=== PATIENT | female | born 1940 | race Two or more races ===

== ENCOUNTER 2020-04-23 09:16 | Outpatient (REF) | payer MEDICARE, SELFPAY ==
[2020-04-23 11:17] LABS: Alanine Aminotransferase 16 U/L (0-31); Albumin Level 4.1 g/dL (3.5-5.0); Alkaline Phosphatase 76 U/L (39-117); Anion Gap 13 (12-20); Aspartate Amino Transferase 16 U/L (5-31); Bilirubin Total 0.3 mg/dL (0.0-1.0); Blood Urea Nitrogen 26 mg/dL (9-16); Calcium 9.3 mg/dL (8.4-10.2); Carbon Dioxide 26 mmol/L (22-29); Chloride 106 mmol/L (96-108); Cholesterol 187 mg/dL; Estimated Glomerular Filt Rate 51; Glucose Fasting 105 mg/dL (60-99); HDL Cholesterol 42 mg/dL; LDL Cholesterol Calculated 129 mg/dl; Potassium 5.4 mmol/l (3.3-5.1); Sodium 140 mmol/L (135-145); Triglycerides 80 mg/dL
[2020-04-23 11:21] LABS: TSH reflex Free T4 0.73 mIU/mL (0.32-4.0)
== END 2020-04-23 09:17 | disposition home or self-care (01) ==
LOC: HO.LAB 09:16
PROVIDERS: PCP Internal Medicine; Visit Provider Internal Medicine
DX: E78.00 Pure hypercholesterolemia, unspecified (principal); E06.3 Autoimmune thyroiditis
CPT/HCPCS: 36415; 80053; 80061; 84443

== ENCOUNTER 2020-09-20 08:35 | Outpatient (REF) | payer MEDICARE, SELFPAY ==
[2020-09-20 09:56] LABS: Alanine Aminotransferase 16 U/L (0-31); Albumin Level 4.2 g/dL (3.5-5.0); Alkaline Phosphatase 79 U/L (39-117); Anion Gap 13 (12-20); Aspartate Amino Transferase 15 U/L (5-31); Bilirubin Total 0.4 mg/dL (0.0-1.0); Blood Urea Nitrogen 23 mg/dL (9-16); Calcium 9.7 mg/dL (8.4-10.2); Carbon Dioxide 28 mmol/L (22-29); Chloride 102 mmol/L (96-108); Cholesterol 205 mg/dL; Estimated Glomerular Filt Rate 57; Glucose Fasting 106 mg/dL (60-99); HDL Cholesterol 49 mg/dL; LDL Cholesterol Calculated 136 mg/dl; Potassium 5.1 mmol/L (3.3-5.1); Sodium 138 mmol/L (135-145); Total Protein 7.1 g/dL (6.5-8.0); Triglycerides 103 mg/dL
[2020-09-20 10:16] LABS: TSH reflex Free T4 2.26 uIU/mL (0.32-4.0)
== END 2020-09-20 08:36 | disposition home or self-care (01) ==
LOC: HO.LAB 08:35
PROVIDERS: PCP Internal Medicine; Visit Provider Internal Medicine
DX: E06.3 Autoimmune thyroiditis (principal); I10 Essential (primary) hypertension
CPT/HCPCS: 36415; 80053; 80061; 84443

== ENCOUNTER 2020-12-24 06:38 | Outpatient (REF) | payer MEDICARE, SELFPAY ==
[2020-12-24 07:30] LABS: Basophils Absolute Auto 0.1 X10*3/uL (0.0-0.2); Basophils Percent Auto 1.1 % (0-2); Eosinophils Absolute Auto 0.7 X10*3/uL (0.0-0.4); Eosinophils Percent Auto 6.2 % (0-4); Hematocrit 39.1 % (37-47); Hemoglobin 12.2 g/dl (12.0-16.0); Imm Gran Abs Auto 0.03 X10*3/uL (0.00-0.03); Imm Gran Pct Auto 0.3 % (0.0-0.4); Lymphocytes Absolute Auto 5.7 X10*3/uL (1.2-4.9); Lymphocytes Percent Auto 47.5 % (20-40); MANUAL DIFF FLAG SCAN; Mean Corpuscular HGB Conc 31.2 g/dl (31.0-35.0); Mean Corpuscular Hemoglobin 25.5 pg (27.0-33.0); Mean Corpuscular Volume 81.6 fL (80-98); Mean Platelet Volume 11.6 fL (9.4-12.3); Monocytes Percent Auto 8.3 % (2-11); Neutrophils Absolute Auto 4.4 X10*3/uL (2.0-8.3); Neutrophils Percent Auto 36.6 % (45-73); Platelet Count 297 X10*3/uL (160-400); Red Blood Count 4.79 X10*6/uL (4.20-5.50); Red Cell Distribution Width 15.3 % (11.0-16.0); SCAN SMEAR FLAG 1
[2020-12-24 07:46] LABS: Alanine Aminotransferase 15 U/L (0-31); Alkaline Phosphatase 77 U/L (39-117); Anion Gap 12 (12-20); Aspartate Amino Transferase 15 U/L (5-31); Bilirubin Total 0.3 mg/dL (0.0-1.0); Blood Urea Nitrogen 30 mg/dL (9-16); Calcium 9.6 mg/dL (8.4-10.2); Carbon Dioxide 26 mmol/L (22-29); Chloride 106 mmol/L (96-108); Cholesterol 186 mg/dL; Estimated Glomerular Filt Rate 49; Glucose Fasting 112 mg/dL (60-99); HDL Cholesterol 45 mg/dL; LDL Cholesterol Calculated 124 mg/dl; Potassium 5.3 mmol/L (3.3-5.1); Sodium 139 mmol/L (135-145); Total Protein 6.8 g/dL (6.5-8.0); Triglycerides 88 mg/dL
[2020-12-24 07:54] LABS: SLIDE REVIEW VERIFIED
[2020-12-24 08:00] LABS: TSH reflex Free T4 1.15 uIU/mL (0.32-4.0)
[2020-12-29 20:06] LABS: Vitamin D 25-OH, D2 <4 ng/mL; Vitamin D 25-OH, D3 26 ng/mL; Vitamin D 25-OH, Total 26 ng/mL (30-100)
== END 2020-12-24 06:39 | disposition home or self-care (01) ==
LOC: HO.LAB 06:38
PROVIDERS: PCP Internal Medicine; Visit Provider Internal Medicine
DX: E78.5 Hyperlipidemia, unspecified (principal); E06.3 Autoimmune thyroiditis; E55.9 Vitamin D deficiency, unspecified; D64.9 Anemia, unspecified; K21.9 Gastro-esophageal reflux disease without esophagitis
CPT/HCPCS: 36415; 80053; 80061; 82306; 84443; 85025

== ENCOUNTER 2021-04-26 08:17 | Outpatient (REF) | payer MEDICARE, SELFPAY ==
[2021-04-26 08:40] LABS: MANUAL DIFF FLAG NO
[2021-04-26 09:03] LABS: Basophils Absolute Auto 0.2 X10*3/uL (0.0-0.2); Basophils Percent Auto 1.5 % (0-2); Eosinophils Absolute Auto 0.9 X10*3/uL (0.0-0.4); Eosinophils Percent Auto 9.1 % (0-4); Hematocrit 39.5 % (37-47); Hemoglobin 12.4 g/dl (12.0-16.0); Imm Gran Abs Auto 0.03 X10*3/uL (0.00-0.03); Imm Gran Pct Auto 0.3 % (0.0-0.4); Lymphocytes Absolute Auto 3.3 X10*3/uL (1.2-4.9); Lymphocytes Percent Auto 33.3 % (20-40); Mean Corpuscular HGB Conc 31.4 g/dl (31.0-35.0); Mean Corpuscular Hemoglobin 25.4 pg (27.0-33.0); Mean Corpuscular Volume 80.8 fL (80-98); Mean Platelet Volume 11.1 fL (9.4-12.3); Monocytes Absolute Auto 0.8 X10*3/uL (0.1-1.2); Monocytes Percent Auto 8.2 % (2-11); Neutrophils Absolute Auto 4.8 X10*3/uL (2.0-8.3); Neutrophils Percent Auto 47.6 % (45-73); Platelet Count 279 X10*3/uL (160-400); Red Blood Count 4.89 X10*6/uL (4.20-5.50); Red Cell Distribution Width 15.4 % (11.0-16.0)
[2021-04-26 09:35] LABS: Alanine Aminotransferase 16 U/L (0-31); Albumin Level 4.1 g/dL (3.5-5.0); Alkaline Phosphatase 75 U/L (39-117); Anion Gap 13 (12-20); Aspartate Amino Transferase 15 U/L (5-31); Bilirubin Total 0.4 mg/dL (0.0-1.0); Blood Urea Nitrogen 12 mg/dL (9-16); Calcium 8.7 mg/dL (8.4-10.2); Carbon Dioxide 26 mmol/L (22-29); Chloride 106 mmol/L (96-108); Cholesterol 198 mg/dL; Estimated Glomerular Filt Rate > 60; Glucose Fasting 124 mg/dL (60-99); HDL Cholesterol 43 mg/dL; LDL Cholesterol Calculated 137 mg/dl; Potassium 4.5 mmol/L (3.3-5.1); Sodium 140 mmol/L (135-145); Total Protein 6.9 g/dL (6.5-8.0); Triglycerides 93 mg/dL
[2021-04-30 12:47] LABS: Vitamin D 25-OH, D2 <4 ng/mL; Vitamin D 25-OH, D3 33 ng/mL; Vitamin D 25-OH, Total 33 ng/mL (30-100)
== END 2021-04-26 08:18 | disposition home or self-care (01) ==
LOC: HO.LAB 08:17
PROVIDERS: PCP Internal Medicine; Visit Provider Internal Medicine
DX: E55.9 Vitamin D deficiency, unspecified (principal); D64.9 Anemia, unspecified; K21.9 Gastro-esophageal reflux disease without esophagitis; E78.5 Hyperlipidemia, unspecified
CPT/HCPCS: 36415; 80053; 80061; 82306; 85025

== ENCOUNTER 2021-09-09 08:03 | Outpatient (REF) | payer MEDICARE, SELFPAY ==
[2021-09-09 09:13] LABS: Alanine Aminotransferase 15 U/L (0-31); Alkaline Phosphatase 69 U/L (39-117); Anion Gap 11 (12-20); Aspartate Amino Transferase 18 U/L (5-31); Bilirubin Total 0.4 mg/dL (0.0-1.0); Blood Urea Nitrogen 20 mg/dL (9-16); Calcium 9.4 mg/dL (8.4-10.2); Carbon Dioxide 29 mmol/L (22-29); Chloride 103 mmol/L (96-108); Cholesterol 189 mg/dL; Estimated Glomerular Filt Rate > 60; Glucose Fasting 111 mg/dL (60-99); HDL Cholesterol 51 mg/dL; LDL Cholesterol Calculated 126 mg/dl; Potassium 4.8 mmol/L (3.3-5.1); Sodium 138 mmol/L (135-145); Triglycerides 62 mg/dL
[2021-09-09 09:26] LABS: Thyroid Stimulating Hormone 0.79 uIU/mL (0.32-4.0)
[2021-09-14 21:01] LABS: Vitamin D 25-OH, D2 <4 ng/mL; Vitamin D 25-OH, D3 33 ng/mL; Vitamin D 25-OH, Total 33 ng/mL (30-100)
== END 2021-09-09 08:04 | disposition home or self-care (01) ==
LOC: HO.LAB 08:03
PROVIDERS: PCP Internal Medicine; Visit Provider Internal Medicine
DX: E55.9 Vitamin D deficiency, unspecified (principal); E78.5 Hyperlipidemia, unspecified
CPT/HCPCS: 36415; 80053; 80061; 82306; 84443

== ENCOUNTER 2022-01-27 09:09 | Outpatient (REF) | payer OTHER, SELFPAY ==
[2022-01-27 10:19] LABS: Alanine Aminotransferase 16 U/L (0-31); Alkaline Phosphatase 79 U/L (39-117); Anion Gap 13 (12-20); Aspartate Amino Transferase 16 U/L (5-31); Bilirubin Total 0.2 mg/dL (0.0-1.0); Blood Urea Nitrogen 24 mg/dL (9-16); Calcium 9.1 mg/dL (8.4-10.2); Carbon Dioxide 29 mmol/L (22-29); Chloride 103 mmol/L (96-108); Cholesterol 207 mg/dL; Estimated Glomerular Filt Rate 53; Glucose Fasting 110 mg/dL (60-99); HDL Cholesterol 48 mg/dL; LDL Cholesterol Calculated 141 mg/dl; Potassium 4.8 mmol/L (3.3-5.1); Sodium 140 mmol/L (135-145); Triglycerides 91 mg/dL
[2022-01-27 10:43] LABS: Thyroid Stimulating Hormone 2.25 uIU/mL (0.32-4.0)
[2022-02-01 15:12] LABS: Vitamin D 25-OH, D2 <4 ng/mL; Vitamin D 25-OH, D3 32 ng/mL; Vitamin D 25-OH, Total 32 ng/mL (30-100)
== END 2022-01-27 09:10 | disposition home or self-care (01) ==
LOC: HO.LAB 09:09
PROVIDERS: PCP Internal Medicine; Visit Provider Internal Medicine
DX: E55.9 Vitamin D deficiency, unspecified (principal); R73.02 Impaired glucose tolerance (oral); E06.3 Autoimmune thyroiditis; E78.5 Hyperlipidemia, unspecified
CPT/HCPCS: 36415; 80053; 80061; 82306; 84443

== ENCOUNTER → 2022-02-09 10:25 | Outpatient (REF) | payer OTHER, SELFPAY ==
--- NOTE | 2022-02-09 10:40 | ECG_ITS ---
Test Reason : R42; DIZZINESS Blood Pressure : / mmHG Vent. Rate : 087 BPM Atrial Rate : 087 BPM P-R Int : 146 ms QRS Dur : 090 ms QT Int : 360 ms P-R-T Axes : 075 014 064 degrees QTc Int : 433 ms Normal sinus rhythm Normal ECG When compared with ECG of 06-DEC-2016 10:46, No significant change was found Referred By: Della Gramajo Electronically Signed By:Adam Thorpe
== END ==
LOC: HO.CARD 10:25
PROVIDERS: PCP Internal Medicine; Visit Provider Internal Medicine
DX: R42 Dizziness and giddiness (principal)
CPT/HCPCS: 93005

== ENCOUNTER 2022-03-17 11:09 | Outpatient (REF) | payer OTHER, SELFPAY ==
--- NOTE | ~2022-03-17 | XR_ITS ---
EXAMINATION: XR CHEST CLINICAL INFORMATION: Asthma. COMPARISON: Chest radiograph dated 12/06/2016 and 09/28/2016. TECHNIQUE: Frontal and lateral views of the chest were obtained. FINDINGS: The heart, great vessels, pulmonary vasculature and mediastinum are stable. There is atherosclerotic calcifications and tortuosity of the thoracic aorta. At the lateral aspect of the mid right lung, a 7 mm noncalcified nodule is newly seen. No infiltrate, effusion or pneumothorax is seen. There is no acute osseous abnormality. XR/XR chest 2V IMPRESSION: 1. A 7 mm mid right lung nodule is newly seen. Recommend further evaluation with CT. 2. No infiltrate or congestive heart failure is seen.
[2022-03-17 11:38] LABS: MANUAL DIFF FLAG NO
[2022-03-17 12:05] LABS: Basophils Absolute Auto 0.1 X10*3/uL (0.0-0.2); Eosinophils Absolute Auto 0.5 X10*3/uL (0.0-0.4); Eosinophils Percent Auto 5.6 % (0-4); Hematocrit 37.8 % (37.0-47.0); Hemoglobin 12.1 g/dl (12.0-16.0); Imm Gran Abs Auto 0.03 X10*3/uL (0.00-0.03); Imm Gran Pct Auto 0.4 % (0.0-0.4); Lymphocytes Absolute Auto 2.6 X10*3/uL (1.2-4.9); Lymphocytes Percent Auto 32.8 % (20-40); Mean Corpuscular Volume 81.3 fL (80.0-98.0); Mean Platelet Volume 11.2 fL (9.4-12.3); Monocytes Absolute Auto 0.7 X10*3/uL (0.1-1.2); Monocytes Percent Auto 9.2 % (2-11); Neutrophils Absolute Auto 4.1 x10*3/uL (2.0-8.3); Platelet Count 286 X10*3/uL (160-400); Red Blood Count 4.65 X10*6/uL (4.20-5.50); Red Cell Distribution Width 15.3 % (11.0-16.0)
[2022-03-17 12:51] LABS: Erythrocyte Sedimentation Rate 20 MM/HR (0-20)
[2022-03-20 11:42] LABS: IgA 445 mg/dL (70-320); IgG 1110 mg/dL (600-1540); IgM 34 mg/dL (50-300)
== END 2022-03-17 11:10 | disposition home or self-care (01) ==
LOC: HO.XRAY 11:09
PROVIDERS: PCP Internal Medicine; Visit Provider Hospitalist
DX: J45.40 Moderate persistent asthma, uncomplicated (principal); R60.0 Localized edema; J30.9 Allergic rhinitis, unspecified
CPT/HCPCS: 36415; 71046; 82784; 82785; 85025; 85652; 86003; 99202

== ENCOUNTER 2022-04-14 10:37 | Outpatient (REF) | payer OTHER, SELFPAY ==
--- NOTE | 2022-04-14 17:35 | PFT_ITS ---
INDICATION: Dyspnea. SPIROMETRY: FEV1 to FVC of 73% post bronchodilators and 70% pre bronchodilators with an FEV1 of 0.97 L, which is 55% predicted and an FVC of 1.32 L, which is 56% predicted. No significant response to bronchodilators noted. The maximum voluntary ventilation 34% predicted. To note, the patient does have small airways disease. LUNG VOLUMES: Total lung capacity 75% predicted with an expiratory reserve volume of 77% predicted. DIFFUSION CAPACITY: DLCO of 77% predicted. COMPARISONS: None available. INTERPRETATION: There appears to be a reversible obstructive ventilatory defect suggestive of asthma. The patient also has evidence of small airways disease, although no significant response to bronchodilators noted. The patient also has a restrictive ventilatory defect consistent with mild restrictive lung disease. The patient also has some mild diffusion impairment. Clinical correlation warranted. MD FRANCISCA Ackerman/NOHEMI / [id number]
== END 2022-04-14 10:38 | disposition home or self-care (01) ==
LOC: HO.RESP 10:37
PROVIDERS: PCP Internal Medicine; Visit Provider Hospitalist
DX: J45.909 Unspecified asthma, uncomplicated (principal)
CPT/HCPCS: 94060; 94727; 94729

== ENCOUNTER 2022-04-20 09:33 | Outpatient (REF) | payer OTHER, SELFPAY ==
--- NOTE | ~2022-04-20 | CT_ITS ---
EXAMINATION: CT CHEST WITHOUT CONTRAST CLINICAL INFORMATION: Pulmonary nodule COMPARISON: Previous CT of the abdomen and pelvis November 2016 and chest x-ray February 2022 TECHNIQUE: Multidetector volumetric CT imaging of the chest was done. Axial MIP volume rendering provided. Sagittal and coronal reformatted images were obtained. This CT examination was performed using dose optimization techniques as appropriate, variously including the following: *Automated exposure control *Adjustment of mA and/or kV according to patient size (this includes techniques or standardized protocols for targeted exams where dose is matched to indication/reason for exam; i.e. extremities or head) *Use of iterative reconstruction technique DLP: 128 mGy-cm FINDINGS: LUNGS: Evaluation of the lungs is limited due to respiratory motion artifact. The previously identified left lower lobe airways disease and small lower lobe pulmonary nodules on November 2016 exam are no longer seen. There is a 7 mm right upper lobe nodule axial image 213 series 5 likely accounting for abnormality on chest x-ray from February 2022. There is a 3 mm right upper lobe nodule axial image 85 series 5. There is a 2 mm right upper lobe nodule axial image 210 series 5. There is a 3 mm right upper lobe peripheral or subpleural nodule adjacent to the minor fissure axial image 243 series 5. There is scarring or subsegmental atelectasis in the right middle lobe and lingula. No endobronchial or endotracheal lesion. No evidence of emphysema or interstitial lung disease. MEDIASTINUM: There are calcified small right hilar lymph nodes suggestive of old granulomatous disease. No enlarged lymph nodes. Normal heart size. Coronary artery and aortic valve calcification. Normal caliber thoracic aorta. No pericardial effusion. CORONARY ARTERY CALCIFICATION: Moderate PLEURA: There is no pleural effusion. No pleural mass or thickening. AXILLA: No lymphadenopathy. UPPER ABDOMEN: Unremarkable. OSSEOUS STRUCTURES: Degenerative changes of the spine. CT/CT chest wo IV con IMPRESSION: Evidence of old granulomatous disease with calcified right upper lobe nodule and right hilar lymph nodes. Several small noncalcified pulmonary nodules. According to the UPDATED 2017 Fleischner Society recommendations, the advised follow-up imaging for less than 6 mm solid nodule: Low risk, no chest CT follow-up and high risk, optional chest CT follow-up in one year. Coronary artery and aortic valve calcification.. Fleischner guidelines were followed.
== END 2022-04-20 09:34 | disposition home or self-care (01) ==
LOC: HO.CT 09:33
PROVIDERS: PCP Internal Medicine; Visit Provider Hospitalist
DX: R91.1 Solitary pulmonary nodule (principal)
CPT/HCPCS: 71250

== ENCOUNTER → 2022-05-15 09:34 | Outpatient (BNVA) | payer OTHER, SELFPAY | PROVIDERS: PCP Internal Medicine; Visit Provider Hospitalist | DX: J45.40 Moderate persistent asthma, uncomplicated (principal); J30.9 Allergic rhinitis, unspecified; R60.0 Localized edema; R91.1 Solitary pulmonary nodule; Z79.899 Other long term (current) drug therapy | CPT/HCPCS: 99212 ==

== ENCOUNTER 2022-05-30 09:05 | Outpatient (REF) | payer OTHER, SELFPAY ==
[2022-05-30 09:17] LABS: MANUAL DIFF FLAG NO
[2022-05-30 10:43] LABS: Basophils Absolute Auto 0.1 X10*3/uL (0.0-0.2); Basophils Percent Auto 1.3 % (0-2); Eosinophils Absolute Auto 0.5 X10*3/uL (0.0-0.4); Eosinophils Percent Auto 5.3 % (0-4); Hematocrit 39.4 % (37.0-47.0); Hemoglobin 12.4 g/dl (12.0-16.0); Imm Gran Abs Auto 0.03 X10*3/uL (0.00-0.03); Imm Gran Pct Auto 0.3 % (0.0-0.4); Lymphocytes Absolute Auto 4.1 X10*3/uL (1.2-4.9); Lymphocytes Percent Auto 40.9 % (20-40); Mean Corpuscular HGB Conc 31.5 g/dl (31.0-35.0); Mean Corpuscular Hemoglobin 25.4 pg (27.0-33.0); Mean Corpuscular Volume 80.7 fL (80.0-98.0); Mean Platelet Volume 11.4 fL (9.4-12.3); Monocytes Absolute Auto 0.8 X10*3/uL (0.1-1.2); Monocytes Percent Auto 8.3 % (2-11); Neutrophils Absolute Auto 4.4 x10*3/uL (2.0-8.3); Neutrophils Percent Auto 43.9 % (45-73); Platelet Count 305 X10*3/uL (160-400); Red Blood Count 4.88 X10*6/uL (4.20-5.50); Red Cell Distribution Width 15.6 % (11.0-16.0); White Blood Count 9.9 X10*3/uL (4.8-10.8)
[2022-05-30 11:30] LABS: Alanine Aminotransferase 17 U/L (0-31); Alkaline Phosphatase 67 U/L (39-117); Anion Gap 13 (12-20); Aspartate Amino Transferase 16 U/L (5-31); Bilirubin Total 0.4 mg/dL (0.0-1.0); Blood Urea Nitrogen 20 mg/dL (9-16); Calcium 9.4 mg/dL (8.4-10.2); Carbon Dioxide 25 mmol/L (22-29); Chloride 105 mmol/L (96-108); Cholesterol 199 mg/dL; Estimated Glomerular Filt Rate > 60; Glucose Fasting 108 mg/dL (60-99); HDL Cholesterol 42 mg/dL; LDL Cholesterol Calculated 135 mg/dl; Potassium 4.8 mmol/L (3.3-5.1); Sodium 138 mmol/L (135-145); Thyroid Stimulating Hormone 3.15 uIU/mL (0.32-4.0); Total Protein 6.9 g/dL (6.5-8.0); Triglycerides 110 mg/dL; Vitamin D 25-OH Total 27.6 ng/mL (>30)
== END 2022-05-30 09:06 | disposition home or self-care (01) ==
LOC: HO.LAB 09:05
PROVIDERS: PCP Internal Medicine; Visit Provider Internal Medicine
DX: E06.3 Autoimmune thyroiditis (principal); E55.9 Vitamin D deficiency, unspecified; E78.5 Hyperlipidemia, unspecified; R42 Dizziness and giddiness; R73.02 Impaired glucose tolerance (oral)
CPT/HCPCS: 36415; 80053; 80061; 82306; 84443; 85025

== ENCOUNTER 2022-10-10 08:35 | Outpatient (REF) | payer OTHER, SELFPAY ==
[2022-10-10 10:28] LABS: Alanine Aminotransferase 22 U/L (0-31); Albumin Level 3.8 g/dL (3.5-5.0); Alkaline Phosphatase 71 U/L (39-117); Anion Gap 12 (12-20); Aspartate Amino Transferase 20 U/L (5-31); Bilirubin Total 0.4 mg/dL (0.0-1.0); Blood Urea Nitrogen 17 mg/dL (9-16); Calcium 9.2 mg/dL (8.4-10.2); Carbon Dioxide 30 mmol/L (22-29); Chloride 104 mmol/L (96-108); Cholesterol 202 mg/dL; Estimated Glomerular Filt Rate 59; Glucose Fasting 115 mg/dL (60-99); HDL Cholesterol 47 mg/dL; LDL Cholesterol Calculated 134 mg/dl; Potassium 4.7 mmol/L (3.3-5.1); Sodium 141 mmol/L (135-145); Total Protein 6.6 g/dL (6.5-8.0); Triglycerides 106 mg/dL
[2022-10-10 10:48] LABS: Thyroid Stimulating Hormone 3.15 uIU/mL (0.32-4.0); Vitamin D 25-OH Total 28.7 ng/mL (>30)
== END 2022-10-10 08:36 | disposition home or self-care (01) ==
LOC: HO.LAB 08:35
PROVIDERS: PCP Internal Medicine; Visit Provider Internal Medicine
DX: E55.9 Vitamin D deficiency, unspecified (principal); R73.02 Impaired glucose tolerance (oral); E06.3 Autoimmune thyroiditis; E78.5 Hyperlipidemia, unspecified
CPT/HCPCS: 36415; 80053; 80061; 82306; 84443

== ENCOUNTER → 2022-12-06 10:47 | Outpatient (REF) | payer OTHER, SELFPAY ==
--- NOTE | 2022-12-06 10:50 | CA_ITS ---
Transthoracic Echocardiogram Patient (Last, First, Middle): Shruthi Gilmore, Gender: Female Date of : 1940 Age: 82 Procedure Date: 12/06/2022 Procedure Type: Transthoracic Echocardiogram Location: OP Height: 157.48 cm Weight: 76.66 kg BSA: 1.78 m2 Heart Rate: bpm BP: 134 / 82 mmHg Filtration Operator: Referring MD: Della Gramajo MD Symptoms: R01.1 - Cardiac murmur, unspecified Study Quality: Fair ECG Rhythm: Sinus Conclusions: - The left ventricular systolic function is normal. The calculated ejection fraction is 62% by biplane method. - There is mild calcification of the aortic valve. There is mild aortic valve regurgitation. - There is moderate posterior mitral annular calcification. There is mild mitral valve regurgitation. Findings Left Ventricle Normal left ventricular cavity size. There is mildly increased left ventricular wall thickness. The left ventricular systolic function is normal. The calculated ejection fraction is 62% by biplane method. There is no evidence of regional wall motion abnormalities. E/E prime ratio is >15, consistent with elevated filling pressures. Evidence suggests grade I (mild) diastolic dysfunction. Right Ventricle Normal right ventricular cavity size and systolic function. Atria Both atria are normal in size. Aortic Valve There is mild calcification of the aortic valve. There is no aortic valve stenosis. There is mild aortic valve regurgitation. Mitral Valve There is moderate posterior mitral annular calcification. There is mild mitral valve regurgitation. There is no mitral valve stenosis. Pulmonic Valve The pulmonic valve is likely normal. Tricuspid Valve Normal tricuspid valve structure. There is no tricuspid valve regurgitation. There is no evidence of pulmonary hypertension. Great Vessels The asc aorta is normal in size. Venous The inferior vena cava is normal in size and collapses greater than 50% with inspiration. Pericardium/Pleural There is no evidence of pericardial effusion. Prior Study Comparison Changes noted compared to prior study dated: 09/30/2016. Progression of valvular abnormalities. Measurements 2D Linear Measurements IVSd: 1.12 0.6-0.9/0.6-1.0 cm LVIDd: 4.24 3.9-5.3/4.2-5.9 cm LVIDd Index: 2.38 2.4-3.2/2.2-3.1 cm/m2 LVIDs: 2.61 2.0-3.6 cm LVPWd: 1.12 0.7-1.1 cm Ao Root: 2.90 2.1-3.5 cm LA Diam: 3.90 2.7-3.8/3.0-4.0 cm LAIDs Index: 2.19 1.5-2.3 cm/m2 LV Mass: 203.71 67-162/88-224 g LV Mass Index: 114.44 43-95/49-115 g/m2 LVOT Diam: 2.00 3.0+(-)1.3 cm 2D Systolic Function EF 4C: 60.40 >55% EF 2C: 63.20 >55% EF BiP: 61.50 >55% Mitral Valve MV VTI: 0.44 MV Pk Narciso: 1.49 MV Mn Narciso: 0.89 MV Pk Grad: 9.00 MV Mn Grad: 4.00 MV Pk E: 1.10 MV PK A: 1.39 MV Decel Time: 214.00 E/A: 0.80 E'Lateral: 5.55 E'Medial: 9.14 E/E' Med: 12.00 E/E' Lat: 19.80 PHT: 63.00 MVA PHT: 3.49 MVA Continuity: 1.97 Decel Kimble: 5.13 Aortic Valve AoV Pk Narciso: 1.94 AoV Mn Narciso: 1.25 AoV VTI: 0.45 AoV Pk Grad: 15.00 Aov Mn Grad: 8.00 KENYATTA Cont.VTI: 1.95 LVOT LVOT Pk Narciso: 1.08 LVOT Mn Narciso: 0.69 LVOT VTI: 0.28 LVOT Pk Grad: 5.00 LVOT Mn Grad: 3.00 LVOT Diam: 2.00 LVOT Area: 3.14 Diastolic Function MV Pk E: 1.10 MV Pk A: 1.39 E/A: 0.80 E'Medial: 9.14 E/E' Med: 12.00 E' Laterial: 5.55 E/E' Lat: 19.80 Right Ventricle TAPSE (mm): 26.00 TVS' Narciso: 10.00 Tricuspid Valve TR Pk Narciso: 2.43 TR Pk Grad: 24.00 RA Press: 3.00 RVSP: 27.00 Great Vessels Aorta Ao Root-2D: 2.90 2.0-3.7 cm Ao Asc: 3.00 2.1-3.4 cm Pulmonary Valve PV Pk Narciso: 1.05 Peak PV Grad: 4.00 Updated in Other Vendor System with Status of Final Adams Yip MD electronically signed on 12/06/2022 4:23:43 PM with status of Final
== END ==
LOC: HO.CARD 10:47
PROVIDERS: PCP Internal Medicine; Visit Provider Internal Medicine
DX: R01.1 Cardiac murmur, unspecified (principal)
CPT/HCPCS: 93306

== ENCOUNTER 2023-02-12 08:42 | Outpatient (REF) | payer OTHER, SELFPAY ==
[2023-02-12 10:03] LABS: Alanine Aminotransferase 20 U/L (0-31); Alkaline Phosphatase 84 U/L (39-117); Anion Gap 12 (12-20); Aspartate Amino Transferase 20 U/L (5-31); Bilirubin Total 0.4 mg/dL (0.0-1.0); Blood Urea Nitrogen 21 mg/dL (9-16); Calcium 9.6 mg/dL (8.4-10.2); Carbon Dioxide 30 mmol/L (22-29); Chloride 104 mmol/L (96-108); Cholesterol 130 mg/dL; Estimated Glomerular Filt Rate > 60; Glucose Fasting 106 mg/dL (60-99); HDL Cholesterol 38 mg/dL; LDL Cholesterol Calculated 72 mg/dl; Potassium 4.5 mmol/L (3.3-5.1); Sodium 141 mmol/L (135-145); Total Protein 7.1 g/dL (6.5-8.0); Triglycerides 100 mg/dL
[2023-02-12 10:21] LABS: Thyroid Stimulating Hormone 5.97 uIU/mL (0.32-4.0); Vitamin D 25-OH Total 30.1 ng/mL (>30)
== END 2023-02-12 08:43 | disposition home or self-care (01) ==
LOC: HO.LAB 08:42
PROVIDERS: PCP Internal Medicine; Visit Provider Internal Medicine
DX: E06.3 Autoimmune thyroiditis (principal); I10 Essential (primary) hypertension; E55.9 Vitamin D deficiency, unspecified; E78.5 Hyperlipidemia, unspecified
CPT/HCPCS: 36415; 80053; 80061; 82306; 84443

== ENCOUNTER 2023-02-20 09:51 | Outpatient (AMB) | payer OTHER, SELFPAY ==
--- NOTE | 2023-02-20 09:55 | MHC.PC.OV ---
Vital Signs 02/20/23 09:57 Height 5 ft 2 in Weight 173 lb BMI 31.6 BP 130/64 Blood Pressure Location Lt brachial Position Sitting Intake Visit Reasons: bp,lipids Intake Note: Patient here for a follow up BP, Lipids Glaze Sprayer Required: No Accompanied by: Grand Child Allergies No Known Allergies [No Known Allergies*] Allergy (Verified 02/20/23 10:04) Medication List - Last Reconciled 02/20/23 by Della Gramajo MD albuterol sulfate 2.5 mg (3 mL) inhalation TID PRN 30 days albuterol sulfate 90 mcg/actuation 2 puffs inhalation Q6-8H 30 days amlodipine 2.5 mg PO DAILY 90 days atorvastatin 10 mg PO BEDTIME 90 days cholecalciferol (vitamin D3) 25 mcg PO DAILY 90 days adam.stocking,knee,reg,smal 15-20cm diclofenac sodium 50 mg PO TID PRN 30 days zxztdvbdivp-yndyugvgh-wyybwqep 100-62.5-25 mcg (Trelegy Ellipta) 1 inh inhalation DAILY 30 days furosemide 20 mg PO BID 90 days [incontinence pads As directed] levothyroxine 100 mcg PO DAILY 90 days loratadine (Allergy Relief (loratadine)) 10 mg PO DAILY 90 days meclizine 25 mg PO TID PRN 30 days montelukast 10 mg PO BEDTIME 90 days omeprazole 40 mg PO DAILY 90 days [reclining chair As directed] umeclidinium-vilanterol 62.5-25 mcg/actuation (Anoro Ellipta) 1 inh inhalation DAILY 30 days Tobacco use date assessed: 10/19/22 Fall risk assessment: No Falls in past year Last assessed Fall Risk: 02/20/23 Dental Screening Dental Screen Date: 02/20/23 Did you have a dental visit in the last 12 months?: No Did you have a dental problem in the last 6 months where you did not have access to dental care?: No Was dental information given to patient?: Patient has dentist HPI HPI Comments History of Present Illness Details This is an 82-year-old female with hypertension, autoimmune thyroiditis, dyslipidemia and moderate asthma as well as impaired glucose tolerance that comes today accompanied by granddaughter for follow-up on her conditions. Blood pressure stable. TSH is elevated and I will increase levothyroxine from 100 mcg to 112 mcg. TSH will be repeated in 6 weeks. Cholesterol well controlled with statins. Use rescue inhaler 1 to twice a month. No chest pain or shortness of breath. [facility] Medical History (Updated 02/20/23 @ 10:15 by Della Gramajo MD) Asthma Asthma Autoimmune thyroiditis Chronic allergic rhinitis Dyslipidemia Essential hypertension GERD (gastroesophageal reflux disease) Hypovitaminosis D Impaired glucose tolerance Leg edema Mild asthma Moderate asthma Pulmonary nodule Surgical History History of inguinal hernia repair, bilateral Family History Father No problems noted. Mother No problems noted. Sister Breast cancer Social History Housing: Apartment Alcohol intake: never Patient Tobacco Use Status: Never used Tobacco e-Cigarette/Vaping Use: Never Used Second Hand Smoke Exposure: No service: No Current occupational status: disabled Cognitive needs: No Hearing needs: No Vision needs: No Questionnaire Thrive Questionnaire Date Thrive assessed: 10/19/22 TONY-7 AMB Questionnaire TONY-7 Date TONY - 7 assessed: 10/19/22 Source: Developed by Drs. Fabian Quintana, Geeta Irizarry, Khoa Odonnell and colleagues, with an educational stephenie from [employer]. Review of Systems Const All systems reviewed & are unremarkable except as noted in HPI and below Eyes Reports no additional complaints, Denies change in vision and Denies other visual disturbances Card Denies chest pain at rest, Denies chest pain with activity, Denies edema, Denies irregular heart rhythm, Denies claudication, Denies dyspnea, Denies dyspnea on exertion, Denies orthopnea, Denies paroxysmal nocturnal dyspnea and Denies slow heart rate Resp Denies cough, Denies dyspnea and Denies dyspnea on exertion GI Denies abdominal pain, Denies change in bowel habits, Denies excessive flatus, Denies nausea and Denies vomiting Denies urinary incontinence, Denies urinary hesitancy and Denies urinary urgency Musc Denies abnormal gait, Denies atrophy, Denies deformity and Denies limited range of motion Skin/Breast Denies bleeding lesions, Denies changing lesions and Denies rash Neuro Denies abnormal gait and Denies lack of coordination Physical exam (Primary Care) Vital Signs: Last Vital Signs BP 130/64 02/20/23 09:57 BMI result Body Mass Index 31.6 Tobacco/Smoking Status: Tobacco use Status Tobacco use date assessed 10/19/22 02/20/23 10:02 Patient Tobacco Use Status Never used Tobacco 02/20/23 10:02 e-Cigarette/Vaping Use Never Used 02/20/23 10:02 Thrive Assessment: Date of Thrive Assessment Date Thrive assessed 10/19/22 02/20/23 10:02 Eyes General: appearance normal, both eyes and all related structures Eyelids: Yes eyelids normal Conjunctivae: conjunctivae normal Neck Neck: Yes normal visual inspection and Yes supple Resp Effort & Inspection: normal respiratory effort Auscultation: clear to auscultation bilaterally Cardio Jugular venous distension: no JVD Rate: regular rate Rhythm: regular rhythm Heart sounds: S1 normal heart sound present and S2 normal heart sound present Extrem General: Yes full ROM Assessment and Plan Assessment & Plan (1) Autoimmune thyroiditis: Code(s): E06.3 - Autoimmune thyroiditis Plan: Increase levothyroxine to 112 mcg. Repeat TSH in 6 weeks. (2) Essential hypertension: Code(s): I10 - Essential (primary) hypertension Plan: Continue amlodipine. Blood pressure goal is equal or less than 130/80. (3) Dyslipidemia: Code(s): E78.5 - Hyperlipidemia, unspecified Plan: Continue statins (4) Impaired glucose tolerance: Code(s): R73.02 - Impaired glucose tolerance (oral) Plan: Monitor fasting blood glucose seen 4 months. Continue low-carbohydrate diet. (5) Moderate asthma: Code(s): J45.909 - Unspecified asthma, uncomplicated Qualifiers: Asthma persistence: persistent Asthma complication type: uncomplicated Qualified Code(s): J45.40 - Moderate persistent asthma, uncomplicated Plan: Continue Trelegy. Use rescue inhaler as needed. Orders: Orders Thyroid Stimulating Hormone 6 Weeks E06.3 - Autoimmune thyroiditis Comprehensive [place]. Panel Fast 4 Months I10 - Essential (primary) hypertension Lipid Panel 4 Months E78.5 - Hyperlipidemia, unspecified, I10 - Essential (primary) hypertension Vitamin D 25-OH Total 4 Months E55.9 - Vitamin D deficiency, unspecified Medications: New levothyroxine 112 mcg PO DAILY 90 days 90 tabs 1RF Discontinued levothyroxine Discontinued Reason: Patient Completed Course 100 mcg PO DAILY 90 days 90 tabs 1RF Coding Level of Care Code Est Pt Level 4 (88261) Diagnoses Autoimmune thyroiditis E06.3 Essential hypertension I10 Dyslipidemia E78.5 Impaired glucose tolerance R73.02 Moderate asthma J45.40 Asthma persistence: persistent Asthma complication type: uncomplicated Time Spent (min) 22
[2023-02-20 09:57] VITALS: BP 130/64; BMI 31.6
== END 2023-02-20 10:18 | disposition home or self-care (01) ==
PROVIDERS: Visit Provider Internal Medicine
DX: E06.3 Autoimmune thyroiditis (principal); I10 Essential (primary) hypertension; J45.40 Moderate persistent asthma, uncomplicated; E78.5 Hyperlipidemia, unspecified; R73.02 Impaired glucose tolerance (oral)
CPT/HCPCS: 99214

== ENCOUNTER 2023-06-19 09:15 | Outpatient (REF) | payer OTHER, SELFPAY ==
[2023-06-19 11:05] LABS: Alanine Aminotransferase 16 U/L (0-31); Alkaline Phosphatase 68 U/L (39-117); Anion Gap 11 (12-20); Aspartate Amino Transferase 17 U/L (5-31); Bilirubin Total 0.4 mg/dL (0.0-1.0); Blood Urea Nitrogen 16 mg/dL (9-16); Calcium 9.4 mg/dL (8.4-10.2); Carbon Dioxide 28 mmol/L (22-29); Chloride 106 mmol/L (96-108); Cholesterol 165 mg/dL (<200); Estimated Glomerular Filt Rate > 60; Glucose Fasting 113 mg/dL (60-99); HDL Cholesterol 44 mg/dL (>40); LDL Cholesterol Calculated 103 mg/dL (<100); Potassium 4.4 mmol/L (3.3-5.1); Sodium 141 mmol/L (135-145); Total Protein 7.2 g/dL (6.5-8.0); Triglycerides 91 mg/dL (<150)
[2023-06-19 11:10] LABS: Thyroid Stimulating Hormone 1.81 uIU/mL (0.32-4.0); Vitamin D 25-OH Total 26.7 ng/mL (>30)
== END 2023-06-19 09:16 | disposition home or self-care (01) ==
LOC: HO.LAB 09:15
PROVIDERS: PCP Internal Medicine; Visit Provider Internal Medicine
DX: E06.3 Autoimmune thyroiditis (principal); E78.5 Hyperlipidemia, unspecified; E55.9 Vitamin D deficiency, unspecified; I10 Essential (primary) hypertension
CPT/HCPCS: 36415; 80053; 80061; 82306; 84443

== ENCOUNTER 2023-06-28 13:07 | Outpatient (AMB) | payer OTHER, SELFPAY ==
[2023-06-28 13:08] VITALS: BP 152/70; BMI 31.8
--- NOTE | 2023-06-28 13:08 | A.OFFPC_ITS ---
Vital Signs 06/28/23 13:08 Height 5 ft 2 in Weight 174 lb BMI 31.8 BP 152/70 H Blood Pressure Location Lt brachial Position Sitting Intake Visit Reasons: bp Intake Note: Patient here for a follow up BP Environmental Systems Coordinator Required: No Accompanied by: Grand Child Allergies No Known Allergies [No Known Allergies*] Allergy (Verified 06/28/23 13:32) Medication List - Last Reconciled 06/28/23 by Della Gramajo MD albuterol sulfate 2.5 mg (3 mL) inhalation TID PRN 30 days albuterol sulfate 90 mcg/actuation 2 puffs inhalation Q6-8H 30 days amlodipine 2.5 mg PO DAILY 90 days atorvastatin 10 mg PO BEDTIME 90 days cholecalciferol (vitamin D3) 25 mcg PO DAILY 90 days adam.stocking,knee,reg,smal 15-20cm diclofenac sodium 50 mg PO TID PRN 30 days upzxdzisglv-zxvpccrnx-fabspojq 100-62.5-25 mcg (Trelegy Ellipta) 1 inh inhalation DAILY 30 days furosemide 20 mg PO BID 90 days [incontinence pads As directed] levothyroxine 112 mcg PO DAILY 90 days loratadine (Allergy Relief (loratadine)) 10 mg PO DAILY 90 days meclizine 25 mg PO TID PRN 30 days montelukast 10 mg PO BEDTIME 90 days omeprazole 40 mg PO DAILY 90 days [reclining chair As directed] umeclidinium-vilanterol 62.5-25 mcg/actuation (Anoro Ellipta) 1 inh inhalation DAILY 30 days Tobacco use date assessed: 10/19/22 Fall risk assessment: No Falls in past year Last assessed Fall Risk: 06/28/23 Dental Screening Dental Screen Date: 06/28/23 Did you have a dental visit in the last 12 months?: No Did you have a dental problem in the last 6 months where you did not have access to dental care?: No Was dental information given to patient?: Patient has dentist HPI HPI Comments History of Present Illness Details This is an 82-year-old female with hypertension, dyslipidemia, impaired glucose tolerance and hypothyroidism that comes today for follow-up on her conditions and is accompanied by granddaughter. Blood pressure elevated today and will be recheck in 3 weeks by nurse navigator. Cholesterol slightly more elevated but still control. Fasting blood glucose has worsened and he denies any polyuria or polydipsia. TSH normal. No chest pain or shortness of breath. [facility] Medical History Pulmonary nodule Chronic allergic rhinitis Asthma Asthma Impaired glucose tolerance Moderate asthma Hypovitaminosis D Dyslipidemia Leg edema GERD (gastroesophageal reflux disease) Autoimmune thyroiditis Mild asthma Essential hypertension Surgical History History of inguinal hernia repair, bilateral Family History Father No problems noted. Mother No problems noted. Sister Breast cancer Social History Housing: Apartment Alcohol intake: never Patient Tobacco Use Status: Never used Tobacco e-Cigarette/Vaping Use: Never Used Second Hand Smoke Exposure: No service: No Current occupational status: disabled Cognitive needs: Yes Hearing needs: No Vision needs: No Questionnaire Thrive Questionnaire Date Thrive assessed: 10/19/22 TONY-7 AMB Questionnaire TONY-7 Date TONY - 7 assessed: 10/19/22 Source: Developed by Drs. Fabian Quintana, Geeta Irizarry, Khoa Odonnell and colleagues, with an educational stephenie from [employer]. Review of Systems Const All systems reviewed & are unremarkable except as noted in HPI and below Eyes Reports no additional complaints, Denies change in vision and Denies other visual disturbances Card Denies chest pain at rest, Denies chest pain with activity, Denies edema, Denies irregular heart rhythm, Denies claudication, Denies dyspnea, Denies dyspnea on exertion, Denies orthopnea, Denies paroxysmal nocturnal dyspnea and Denies slow heart rate Resp Denies cough, Denies dyspnea and Denies dyspnea on exertion GI Denies abdominal pain, Denies change in bowel habits, Denies excessive flatus, Denies nausea and Denies vomiting Denies urinary incontinence, Denies urinary hesitancy and Denies urinary urgency Musc Denies abnormal gait, Denies atrophy, Denies deformity and Denies limited range of motion Skin/Breast Denies bleeding lesions, Denies changing lesions and Denies rash Neuro Denies abnormal gait and Denies lack of coordination Physical exam (Primary Care) Vital Signs: Last Vital Signs BP 152/70 H 06/28/23 13:08 BMI result Body Mass Index 31.8 Tobacco/Smoking Status: Tobacco use Status Tobacco use date assessed 10/19/22 06/28/23 13:12 Patient Tobacco Use Status Never used Tobacco 06/28/23 13:12 e-Cigarette/Vaping Use Never Used 06/28/23 13:12 Thrive Assessment: Date of Thrive Assessment Date Thrive assessed 10/19/22 06/28/23 13:12 Eyes General: appearance normal, both eyes and all related structures Eyelids: Yes eyelids normal Conjunctivae: conjunctivae normal Neck Neck: Yes normal visual inspection and Yes supple Resp Effort & Inspection: normal respiratory effort Auscultation: clear to auscultation bilaterally Cardio Jugular venous distension: no JVD Rate: regular rate Rhythm: regular rhythm Heart sounds: S1 normal heart sound present and S2 normal heart sound present Extrem General: Yes full ROM Psych Appearance: grossly normal Office Procedures Flu Questionnaire Does the patient have a severe egg allergy?: No Immunizations flu vacc [id number] 6mos up(PF) 60 mcg(15 mcgx4)/0.5 mL IM syringe Performing Provider: Della Gramajo MD [facility] Documented (not given) by: SHARON Hammond on 06/28/23 13:14 Reason Not Given: Patient Refused Assessment and Plan Assessment & Plan (1) Essential hypertension: Code(s): I10 - Essential (primary) hypertension Plan: Continue amlodipine. Blood pressure goal is equal or less than 130/80. Recheck blood pressure with nurse navigator in 3 weeks. (2) Autoimmune thyroiditis: Code(s): E06.3 - Autoimmune thyroiditis Plan: Continue levothyroxine. (3) Dyslipidemia: Code(s): E78.5 - Hyperlipidemia, unspecified Plan: Continue statins. (4) Impaired glucose tolerance: Code(s): R73.02 - Impaired glucose tolerance (oral) Plan: Start low-carbohydrate diet. Monitor blood glucose. Orders: Orders Lipid Panel 4 Months E78.5 - Hyperlipidemia, unspecified Vitamin D 25-OH Total 4 Months E55.9 - Vitamin D deficiency, unspecified Comprehensive [place]. Panel Fast 4 Months I10 - Essential (primary) hypertension Influenza [id number] Immunization Today Z23 - Encounter for immunization Thyroid Stimulating Hormone 4 Months E06.3 - Autoimmune thyroiditis Coding Level of Care Code Est Pt Level 4 (72924) Diagnoses Essential hypertension I10 Autoimmune thyroiditis E06.3 Dyslipidemia E78.5 Impaired glucose tolerance R73.02 Time Spent (min) 22
== END 2023-06-28 13:42 | disposition home or self-care (01) ==
PROVIDERS: PCP Internal Medicine; Visit Provider Internal Medicine
DX: I10 Essential (primary) hypertension (principal); E06.3 Autoimmune thyroiditis; E78.5 Hyperlipidemia, unspecified; R73.02 Impaired glucose tolerance (oral)
CPT/HCPCS: 99214

== ENCOUNTER 2023-10-30 09:07 | Outpatient (REF) | payer OTHER, SELFPAY ==
[2023-10-30 11:22] LABS: Alanine Aminotransferase 20 U/L (0-31); Albumin Level 3.9 g/dL (3.5-5.0); Alkaline Phosphatase 68 U/L (39-117); Anion Gap 12 (12-20); Aspartate Amino Transferase 18 U/L (5-31); Bilirubin Total 0.4 mg/dL (0.0-1.0); Blood Urea Nitrogen 24 mg/dL (9-16); Calcium 9.4 mg/dL (8.4-10.2); Carbon Dioxide 27 mmol/L (22-29); Chloride 108 mmol/L (96-108); Cholesterol 137 mg/dL (<200); Estimated Glomerular Filt Rate > 60; Glucose Fasting 108 mg/dL (60-99); HDL Cholesterol 42 mg/dL (>40); LDL Cholesterol Calculated 77 mg/dL (<100); Potassium 4.5 mmol/L (3.3-5.1); Sodium 142 mmol/L (135-145); Triglycerides 91 mg/dL (<150)
[2023-10-30 11:39] LABS: Thyroid Stimulating Hormone 2.72 uIU/mL (0.32-4.0); Vitamin D 25-OH Total 24.8 ng/mL (>30)
== END 2023-10-30 09:08 | disposition home or self-care (01) ==
LOC: HO.LAB 09:07
PROVIDERS: PCP Internal Medicine; Visit Provider Internal Medicine
DX: I10 Essential (primary) hypertension (principal); E55.9 Vitamin D deficiency, unspecified; E06.3 Autoimmune thyroiditis; E78.5 Hyperlipidemia, unspecified
CPT/HCPCS: 36415; 80053; 80061; 82306; 84443

== ENCOUNTER 2023-11-08 10:58 | Outpatient (AMB) | payer OTHER, SELFPAY ==
[2023-11-08 11:00] VITALS: BP 142/70; BMI 32.2
--- NOTE | 2023-11-08 11:00 | A.OFFPC_ITS ---
Vital Signs 11/08/23 11:00 11/08/23 11:43 Height 5 ft 2 in Weight 176 lb BMI 32.2 BP 142/70 H 145/70 H Blood Pressure Location Lt brachial Lt brachial Position Sitting Sitting Intake Visit Reasons: pe Intake Note: Patient here for a physical exam Medical Equipment Technician Required: No Accompanied by: Grand Child Allergies No Known Allergies [No Known Allergies*] Allergy (Verified 11/08/23 11:16) Medication List - Last Reconciled 11/08/23 by Della Gramajo MD albuterol sulfate 2.5 mg (3 mL) inhalation TID PRN 30 days albuterol sulfate 90 mcg/actuation 2 puffs inhalation Q6-8H 30 days amlodipine 2.5 mg PO DAILY 90 days atorvastatin 10 mg PO BEDTIME 90 days cholecalciferol (vitamin D3) 25 mcg PO DAILY 90 days adam.stocking,knee,reg,smal 15-20cm diclofenac sodium 50 mg PO TID PRN 30 days agulgjddhpg-yfcwkrpgd-fouggjiz 100-62.5-25 mcg (Trelegy Ellipta) 1 inh inhalation DAILY 30 days furosemide 20 mg PO BID 90 days [incontinence pads As directed] levothyroxine 112 mcg PO DAILY 90 days loratadine (Allergy Relief (loratadine)) 10 mg PO DAILY 90 days meclizine 25 mg PO TID PRN 30 days montelukast 10 mg PO BEDTIME 90 days omeprazole 40 mg PO DAILY 90 days [reclining chair As directed] umeclidinium-vilanterol 62.5-25 mcg/actuation (Anoro Ellipta) 1 inh inhalation DAILY 30 days Tobacco use date assessed: 11/08/23 Fall risk assessment: No Falls in past year Last assessed Fall Risk: 11/08/23 Dental Screening Dental Screen Date: 11/08/23 Did you have a dental visit in the last 12 months?: No Did you have a dental problem in the last 6 months where you did not have access to dental care?: No Was dental information given to patient?: Patient has dentist HPI HPI Comments History of Present Illness Details This is an 83-year-old female that comes for her physical exam accompanied by granddaughter. She declines mammogram and colonoscopy. Labs were discussed. Blood pressure elevated and I will discontinue amlodipine and start her on losartan. Blood pressure goal is equal or less than 130/80. Denies any chest pain or shortness of breath. [facility] Medical History Pulmonary nodule Chronic allergic rhinitis Asthma Asthma Impaired glucose tolerance Moderate asthma Hypovitaminosis D Dyslipidemia Leg edema GERD (gastroesophageal reflux disease) Autoimmune thyroiditis Mild asthma Essential hypertension Surgical History History of inguinal hernia repair, bilateral Family History (Updated 11/08/23 @ 11:21 by Della Gramajo MD) Father COPD (chronic obstructive pulmonary disease) Mother Tuberculosis Sister Breast cancer Social History Housing: Apartment Alcohol intake: never Patient Tobacco Use Status: Never used Tobacco e-Cigarette/Vaping Use: Never Used Second Hand Smoke Exposure: No service: No Current occupational status: disabled Cognitive needs: Yes Hearing needs: No Vision needs: No Questionnaire PHQ-9 Over the last 2 weeks, how often have you been bothered by any of the following problems? 1. Little interest or pleasure in doing things: not at all 2. Feeling down, depressed, or hopeless: not at all 3. Trouble falling or staying asleep, or sleeping too much: not at all 4. Feeling tired or having little energy: not at all 5. Poor appetite or overeating: not at all 6. Feeling bad about yourself - or that you are a failure or have let yourself or your family down: not at all 7. Trouble concentrating on things, such as reading the newspaper or watching television: not at all 8. Moving or speaking so slowly that other people could have noticed. Or the opposite - being so fidgety or restless that you have been moving around a lot more than usual: not at all 9. Thoughts that you would be better off or of hurting yourself in some way: not at all Total score: 0 Depression Screening Interpretation: Negative Depression Screening Done: Yes 88806 - PHQ-9 Billing: Yes Source: Developed by Drs. Fabian Quintana, Geeta Irizarry, Khoa Odonnell and colleagues, with an educational stephenie from [employer]. Thrive Questionnaire Date Thrive assessed: 11/08/23 I am a: Patient What is your living situation today?: I have a steady place to live Within the past 12 months, did the food you bought not last and you didn't have the money to get more?: Never true Within the past 12 months, did you worry whether your food would run out before you got money to buy more?: Never true Do you have trouble paying for medicines?: No Do you have trouble getting transportation to medical appointments?: No Do you have trouble paying your heating and electricity bill?: No Do you have trouble taking care of your child, family member or friend?: No Do you have trouble with day-to-day activities such as bathing, preparing meals, shopping, managing finances, etc.?: No Are you currently unemployed and looking for a job?: No Are you interested in more education?: No Please select the resources that you would like help with: None Currently or been in a relationship where the following occur: no concerns reported THRIVE Score: 0 AUDIT C Alcohol Use Questionnaire (AUDIT-C) 1. How often do you have a drink containing alcohol?: Never 3. How often do you have six or more drinks on one occasion?: Never Total Score: 0 Score Reviewed/Action Taken: No TONY-7 AMB Questionnaire TONY-7 Date TONY - 7 assessed: 11/08/23 Feeling nervous, anxious, or on edge: 0 = Not at all Not being able to stop or control worryin = Not at all Worrying too much about different things: 0 = Not at all Trouble relaxin = Not at all Being so restless that it is hard to sit still: 0 = Not at all Becoming easily annoyed or irritable: 0 = Not at all Feeling afraid as if something awful might happen: 0 = Not at all Total TONY-7 score (0-4 normal; 5-9 mild; 10-14 moderate; 15-21 severe): 0 Source: Developed by Drs. Fabian Quintana, Geeta Irizarry, Khoa Odonnell and colleagues, with an educational stephenie from [employer]. TONY-7 Assessment Billing TONY-7 Assessment Tool: TONY-7 Assessment 31419 Review of Systems Const All systems reviewed & are unremarkable except as noted in HPI and below Eyes Reports no additional complaints, Denies change in vision and Denies other visual disturbances Card Denies chest pain at rest, Denies chest pain with activity, Denies edema, Denies irregular heart rhythm, Denies claudication, Denies dyspnea, Denies dyspnea on exertion, Denies orthopnea, Denies paroxysmal nocturnal dyspnea and Denies slow heart rate Resp Denies cough, Denies dyspnea and Denies dyspnea on exertion GI Denies abdominal pain, Denies change in bowel habits, Denies excessive flatus, Denies nausea and Denies vomiting Denies urinary incontinence, Denies urinary hesitancy and Denies urinary urgency Physical exam (Primary Care) Vital Signs: Last Vital Signs BP 142/70 H 11/08/23 11:00 BMI result Body Mass Index 32.2 Tobacco/Smoking Status: Tobacco use Status Tobacco use date assessed 11/08/23 11/08/23 11:11 Patient Tobacco Use Status Never used Tobacco 11/08/23 11:05 e-Cigarette/Vaping Use Never Used 11/08/23 11:05 PHQ-9: PHQ-9 Score PHQ-9: Total score 0 11/08/23 11:22 Depression Screening Interpretation: Negative Thrive Assessment: Date of Thrive Assessment Date Thrive assessed 11/08/23 11/08/23 11:11 Currently or been in a relationship where the following occur: no concerns reported Const Orientation/consciousness: patient oriented x3 [facility] Head: Yes normal to inspection, Yes normocephalic and Yes atraumatic Ears: external ears normal Eyes General: appearance normal, both eyes and all related structures Eyelids: Yes eyelids normal Conjunctivae: conjunctivae normal Neck Neck: Yes normal visual inspection and Yes supple Resp Effort & Inspection: normal respiratory effort Auscultation: clear to auscultation bilaterally Cardio Jugular venous distension: no JVD Rate: regular rate Rhythm: regular rhythm Heart sounds: S1 normal heart sound present and S2 normal heart sound present GI Inspection: Yes normal to inspection Palpation (GI): Soft to palpation and nontender Auscultation: normal bowel sounds Skin General skin exam: no rashes or lesions noted Neuro General: patient oriented x3 and no focal motor deficits Extrem General: Yes full ROM Psych Appearance: grossly normal Assessment and Plan Assessment & Plan (1) Physical exam: Code(s): Z00.00 - Encounter for general adult medical examination without abnormal findings Plan: Repeat in a year. Medications: New losartan 25 mg PO DAILY 90 days 90 tabs 1RF Discontinued amlodipine Discontinued Reason: Patient Completed Course 2.5 mg PO DAILY 90 days 90 tabs 1RF I10 - Essential (primary) hypertension Coding Level of Care Code Est Pt Prev Care >65y(95378) Diagnoses Physical exam Z00.00 Additional Codes TONY-7 Assessment Billing - TONY-7 Assessment Tool: TONY-7 Assessment 66160 ([id number]) Time Spent (min) 31
[2023-11-08 11:43] VITALS: BP 145/70
== END 2023-11-08 11:30 | disposition home or self-care (01) ==
PROVIDERS: PCP Internal Medicine; Visit Provider Internal Medicine
DX: Z00.00 Encounter for general adult medical examination without abnormal findings (principal)
CPT/HCPCS: 99397

== ENCOUNTER 2024-03-19 08:55 | Outpatient (REF) | payer OTHER, SELFPAY | END 2024-03-19 08:56 | disposition home or self-care (01) | LOC: HO.LAB 08:55 | PROVIDERS: PCP Internal Medicine; Visit Provider Internal Medicine | DX: Z13.89 Encounter for screening for other disorder (principal) ==

== ENCOUNTER 2024-08-12 08:46 | Outpatient (REF) | payer OTHER, SELFPAY ==
[2024-08-12 09:56] LABS: Alanine Aminotransferase 19 U/L (0-31); Alkaline Phosphatase 78 U/L (39-117); Anion Gap 12 (12-20); Aspartate Amino Transferase 22 U/L (5-31); Bilirubin Total 0.4 mg/dL (0.0-1.0); Blood Urea Nitrogen 25 mg/dL (9-16); Calcium 9.1 mg/dL (8.4-10.2); Carbon Dioxide 26 mmol/L (22-29); Chloride 107 mmol/L (96-108); Cholesterol 138 mg/dL (<200); Estimated Glomerular Filt Rate 57; Glucose Fasting 108 mg/dL (60-99); HDL Cholesterol 42 mg/dL (>40); LDL Cholesterol Calculated 82 mg/dL (<100); Potassium 4.8 mmol/L (3.3-5.1); Sodium 140 mmol/L (135-145); Total Protein 7.7 g/dL (6.5-8.0); Triglycerides 74 mg/dL (<150)
[2024-08-12 10:17] LABS: Thyroid Stimulating Hormone 1.04 uIU/mL (0.32-4.0); Vitamin D 25-OH Total 26.5 ng/mL (>30)
== END 2024-08-12 08:47 | disposition home or self-care (01) ==
LOC: HO.LAB 08:46
PROVIDERS: PCP Internal Medicine; Visit Provider Internal Medicine
DX: E06.3 Autoimmune thyroiditis (principal); R73.02 Impaired glucose tolerance (oral); E78.5 Hyperlipidemia, unspecified; E55.9 Vitamin D deficiency, unspecified
CPT/HCPCS: 36415; 80053; 80061; 82306; 84443

== ENCOUNTER 2024-08-18 10:36 | Outpatient (AMB) | payer OTHER, SELFPAY ==
[2024-08-18 10:42] VITALS: BP 172/68; PULSE 87; O2SAT 97; BMI 32.2
--- NOTE | 2024-08-18 10:42 | MHC.PC.OV ---
Vital Signs 08/18/24 10:42 Height 5 ft 2 in Weight 176 lb BMI 32.2 BP 172/68 H Blood Pressure Location Lt brachial Position Sitting Pulse 87 Pulse Source Pulse Oximeter Pulse Oximetry (%) 97 Oxygen Delivery Method Room Air Intake Visit Reasons: bp, thyroid Intake Note: Patient here for a follow up BP, Thyroid [employer] Required: Yes [employer] Language: Nursing Center Tutor Name: Della Gramajo MD Information Interpreted: non-clinical & clinical Accompanied by: Grand Child Allergies No Known Allergies [No Known Allergies*] Allergy (Verified 08/18/24 10:58) Medication List - Last Reconciled 08/18/24 by Della Gramajo MD albuterol sulfate 2.5 mg (3 mL) inhalation TID PRN 30 days albuterol sulfate 90 mcg/actuation 2 puffs inhalation Q6-8H 30 days atorvastatin 10 mg PO BEDTIME 90 days cholecalciferol (vitamin D3) 25 mcg PO DAILY 90 days adam.stocking,knee,reg,smal 15-20cm diclofenac sodium 50 mg PO TID PRN 30 days dlihvinzfhj-iepmnyhhk-emujyjjw 100-62.5-25 mcg (Trelegy Ellipta) 1 inh inhalation DAILY 30 days furosemide 20 mg PO BID 90 days [incontinence pads As directed] levothyroxine 112 mcg PO DAILY 90 days loratadine (Allergy Relief (loratadine)) 10 mg PO DAILY 90 days losartan 25 mg PO DAILY 90 days meclizine 25 mg PO TID PRN 30 days montelukast 10 mg PO BEDTIME 90 days omeprazole 40 mg PO DAILY 90 days [reclining chair As directed] umeclidinium-vilanterol 62.5-25 mcg/actuation (Anoro Ellipta) 1 inh inhalation DAILY 30 days Tobacco use date assessed: 08/18/24 Fall risk assessment: No Falls in past year Last assessed Fall Risk: 08/18/24 Dental Screening Dental Screen Date: 08/18/24 Did you have a dental visit in the last 12 months?: No Did you have a dental problem in the last 6 months where you did not have access to dental care?: No Was dental information given to patient?: Patient has dentist HPI HPI Comments History of Present Illness Details The patient is an 84-year-old female presenting with follow-up for hypertension, hyperlipidemia, and hypothyroidism. The patient has a longstanding history of hypertension, currently managed with Losartan 25 mg daily. The patient confirmed taking Losartan today. Her blood pressure management plan includes reassessment in three weeks to determine if medication adjustment is necessary. The patient has hyperlipidemia managed on Atorvastatin 10 mg, with reported good efficacy in cholesterol control. She also suffers from hypothyroidism, treated with Levothyroxine 112 mcg, which was confirmed to be well managed with consistent therapeutic blood levels. She shows concern for her prediabetic status, but recent glucose levels remain stable at 108 mg/dL, similar to prior values. Interventions for these conditions are ongoing, with continued monitoring and routine blood pressure assessments planned. Her moderate asthma is well controlled with Trelegy and this is follow by pulmonology which she has to make an appointment. [facility] Medical History (Updated 11/08/23 @ 11:41 by Della Gramajo MD) Pulmonary nodule Chronic allergic rhinitis Asthma Asthma Impaired glucose tolerance Moderate asthma Hypovitaminosis D Dyslipidemia Leg edema GERD (gastroesophageal reflux disease) Autoimmune thyroiditis Mild asthma Essential hypertension Surgical History History of inguinal hernia repair, bilateral Family History Father COPD (chronic obstructive pulmonary disease) Mother Tuberculosis Sister Breast cancer Social History Housing: Apartment Alcohol intake: never Patient Tobacco Use Status: Never used Tobacco e-Cigarette/Vaping Use: Never Used Second Hand Smoke Exposure: No service: No Current occupational status: disabled Cognitive needs: Yes Hearing needs: No Vision needs: No Questionnaire PHQ-9 Over the last 2 weeks, how often have you been bothered by any of the following problems? 1. Little interest or pleasure in doing things: not at all 2. Feeling down, depressed, or hopeless: not at all 3. Trouble falling or staying asleep, or sleeping too much: not at all 4. Feeling tired or having little energy: not at all 5. Poor appetite or overeating: not at all 6. Feeling bad about yourself - or that you are a failure or have let yourself or your family down: not at all 7. Trouble concentrating on things, such as reading the newspaper or watching television: not at all 8. Moving or speaking so slowly that other people could have noticed. Or the opposite - being so fidgety or restless that you have been moving around a lot more than usual: not at all 9. Thoughts that you would be better off or of hurting yourself in some way: not at all Total score: 0 Depression Screening Interpretation: Negative Depression Screening Done: Yes 00773 - PHQ-9 Billing: Yes Source: Developed by Drs. Fabian Quintana, Geeta Irizarry, Khoa Odonnell and colleagues, with an educational stephenie from [employer]. Thrive Questionnaire Date Thrive assessed: 08/18/24 I am a: Patient What is your living situation today?: I have a steady place to live Within the past 12 months, did the food you bought not last and you didn't have the money to get more?: Never true Within the past 12 months, did you worry whether your food would run out before you got money to buy more?: Never true Do you have trouble paying for medicines?: No Do you have trouble getting transportation to medical appointments?: No Do you have trouble paying your heating and electricity bill?: No Do you have trouble taking care of your child, family member or friend?: No Do you have trouble with day-to-day activities such as bathing, preparing meals, shopping, managing finances, etc.?: No Are you currently unemployed and looking for a job?: No Are you interested in more education?: No Please select the resources that you would like help with: None Currently or been in a relationship where the following occur: No concerns reported THRIVE Score: 0 AUDIT C Alcohol Use Questionnaire (AUDIT-C) 1. How often do you have a drink containing alcohol?: Never Total Score: 0 Score Reviewed/Action Taken: No TONY-7 AMB Questionnaire TONY-7 Date TONY - 7 assessed: 08/18/24 Feeling nervous, anxious, or on edge: 0 = Not at all Not being able to stop or control worryin = Not at all Worrying too much about different things: 0 = Not at all Trouble relaxin = Not at all Being so restless that it is hard to sit still: 0 = Not at all Becoming easily annoyed or irritable: 0 = Not at all Feeling afraid as if something awful might happen: 0 = Not at all Total TONY-7 score (0-4 normal; 5-9 mild; 10-14 moderate; 15-21 severe): 0 Source: Developed by Drs. Fabian Quintana, Geeta Irizarry, Khoa Odonnell and colleagues, with an educational stephenie from [employer]. TONY-7 Assessment Billing TONY-7 Assessment Tool: TONY-7 Assessment 05080 Review of Systems Const All systems reviewed & are unremarkable except as noted in HPI and below Card Denies chest pain at rest, Denies chest pain with activity, Denies edema, Denies irregular heart rhythm, Denies claudication, Denies dyspnea, Denies dyspnea on exertion, Denies orthopnea, Denies paroxysmal nocturnal dyspnea and Denies slow heart rate Resp Denies cough, Denies dyspnea and Denies dyspnea on exertion Physical exam (Primary Care) Vital Signs: Last Vital Signs Pulse 87 08/18/24 10:42 BP 172/68 H 08/18/24 10:42 Pulse Ox 97 08/18/24 10:42 Oxygen Delivery Method Room Air 08/18/24 10:42 BMI result Body Mass Index 32.2 BMI Assessment/Plan discussion: High BMI High, discussed plan: lifestyle, weight reduction, dietary and physical activity Tobacco/Smoking Status: Tobacco use Status Tobacco use date assessed 08/18/24 08/18/24 10:53 Patient Tobacco Use Status Never used Tobacco 08/18/24 10:45 e-Cigarette/Vaping Use Never Used 08/18/24 10:45 PHQ-9: PHQ-9 Score PHQ-9: Total score 0 08/18/24 11:08 Depression Screening Interpretation: Negative Thrive Assessment: Date of Thrive Assessment Date Thrive assessed 08/18/24 08/18/24 10:53 Currently or been in a relationship where the following occur: No concerns reported Resp Effort & Inspection: normal respiratory effort Auscultation: clear to auscultation bilaterally Cardio Jugular venous distension: no JVD Rate: regular rate Rhythm: regular rhythm Heart sounds: S1 normal heart sound present and S2 normal heart sound present Extrem General: Yes full ROM Office Procedures Flu Questionnaire Does the patient have a severe egg allergy?: No Immunizations Fluarix Triv [id number] (PF) 45 mcg (15 mcg x 3)/0.5 mL IM syringe Performing Provider: Della Gramajo MD Performing Location: [facility] Documented (not given) by: SHARON Hammond on 08/18/24 11:08 Reason Not Given: Not Given Coding Level of Care Code Est Pt Level 4 (37129) Complex EM visit Add On G2211 Diagnoses Essential hypertension I10 Autoimmune thyroiditis E06.3 Dyslipidemia E78.5 Moderate persistent asthma without complication J45.40 Asthma persistence: persistent Asthma complication type: uncomplicated Impaired glucose tolerance R73.02 Additional Codes TONY-7 Assessment Billing - TONY-7 Assessment Tool: TONY-7 Assessment 66837 ([id number]) PHQ-9 - 80101 - PHQ-9 Billing: Yes ([id number]) Time Spent (min) 23 Assessment & Plan Assessment & Plan (1) Essential hypertension: Code(s): I10 - Essential (primary) hypertension Category: Medical (2) Autoimmune thyroiditis: Code(s): E06.3 - Autoimmune thyroiditis Category: Medical (3) Dyslipidemia: Code(s): E78.5 - Hyperlipidemia, unspecified Category: Medical (4) Moderate asthma: Code(s): J45.909 - Unspecified asthma, uncomplicated Category: Medical Qualifiers: Asthma persistence: persistent Asthma complication type: uncomplicated Qualified Code(s): J45.40 - Moderate persistent asthma, uncomplicated (5) Impaired glucose tolerance: Code(s): R73.02 - Impaired glucose tolerance (oral) Category: Medical Plan - Continue current management of hypertension with Losartan; reassess blood pressure in three weeks. - Continue Atorvastatin for hyperlipidemia; verify lipid levels upon next visit. - Maintain current dosing of Levothyroxine for hypothyroidism; ensure thyroid levels remain stable. - Monitor prediabetes with lifestyle and dietary interventions; no change in management necessary at present. - Continue Loratadine for management of allergic rhinitis symptoms. Patient was informed and verbally consented to the use of an ambient scribe for clinic note documentation during this visit. During this visit, I discussed the current management plan for the patient's hypertension, hyperlipidemia, and hypothyroidism. We agreed to continue the current dosage of Losartan unless future blood pressure readings necessitate an increase. I advised continued adherence to Atorvastatin, given its efficacy in controlling cholesterol levels. We also discussed that the current dosing of Levothyroxine appears effective in maintaining stable thyroid function. The patient is aware of her prediabetes and is encouraged to maintain a healthy diet. We discussed potential increases in Losartan if required, with no changes today. I provided contact information for questions before the next scheduled appointment and encouraged reaching out if any symptoms arise. Orders: Orders Lipid Panel 3 Months E78.5 - Hyperlipidemia, unspecified Vitamin D 25-OH Total 3 Months E55.9 - Vitamin D deficiency, unspecified Comprehensive [place]. Panel Fast 3 Months J45.909 - Unspecified asthma, uncomplicated Thyroid Stimulating Hormone 3 Months E06.3 - Autoimmune thyroiditis Influenza [id number] Immunization Today Z23 - Encounter for immunization Medications: Refilled cholecalciferol (vitamin D3) 25 mcg PO DAILY 90 caps 1RF 90 days E55.9 - Vitamin D deficiency, unspecified Patient Instructions: - Continue all medications as prescribed. - Monitor blood pressure regularly and note any significant changes. - Follow up with lab tests as ordered before the next appointment. - Report any new or worsening symptoms promptly. - Maintain diet and exercise regimen as discussed to manage prediabetes. - Schedule a follow-up appointment after completing recommended tests. - Ensure timely refill of medications to prevent any lapses.
== END 2024-08-18 11:04 | disposition home or self-care (01) ==
PROVIDERS: PCP Internal Medicine; Visit Provider Internal Medicine
DX: I10 Essential (primary) hypertension (principal); E06.3 Autoimmune thyroiditis; E78.5 Hyperlipidemia, unspecified; J45.40 Moderate persistent asthma, uncomplicated; R73.02 Impaired glucose tolerance (oral); Z23 Encounter for immunization

== ENCOUNTER → 2024-08-18 10:36 | Outpatient (BNVA) | payer OTHER, SELFPAY | PROVIDERS: PCP Internal Medicine; Visit Provider Internal Medicine | DX: I10 Essential (primary) hypertension (principal); E78.5 Hyperlipidemia, unspecified; E06.3 Autoimmune thyroiditis; J45.40 Moderate persistent asthma, uncomplicated; R73.02 Impaired glucose tolerance (oral) | CPT/HCPCS: 90471; 96127; 99212 ==

== ENCOUNTER 2025-02-17 08:33 | Outpatient (REF) | payer OTHER, SELFPAY ==
--- OUTSIDE RECORDS SUMMARY | 2025-02-17 08:51 | XMS_ITS | Patient Health Record ---
Author Organization [facility] Address [address] [place] [address] Care Team Providers Care Winemaker Name Role Phone Della Pennington Primary Care Provider Unavailab Jonathan Johns Jr Unavailable BILL HUMPHREYS Unavailable Unavailable Reason For Referral No Information Medications Medication SIG (Take, Route, Frequency, Duration) Notes Start Date End Date Status Omeprazole 20 MG 1 capsule Orally estuardo ly for 10days 04/04/2017 Active Biaxin 500 MG 1 tablet Orally ever y 12 hrs for 14 days 04/04/2017 Active Meclizine HCl 25 MG 1 tablet as needed Orally prn Active Amoxicillin 500 MG 2 tablets Orally mala ry 12 hrs for 14 days 04/04/2017 Active amLODIPine Besylate Active Levothyroxine Sodium 112 MCG 1 tablet Or ally Once a day Active Problems Problem Type SNOMED Code ICD Code Onset Dates Problem Status W/U Status Risk Notes Problem [id number] Acute gastric ulcer without hemorrhage or perforation (K25.3) Active confirmed Problem 279604883 Elevated liver function tests (R79.89) Active confirmed Problem [id number] Fatty liver (K76.0) Active confirmed Plan Of Treatment Future Test Test Name Order Date UPPER GI ENDOSCOPY 03/21/2017 Insurance Providers Payer Name Payer Address Payer Phone Subscriber Number Group Number Insured Name Patient Relationship to Insured Coverage Start Date Coverage End Date [facility] [address] [place] [phone] [id number] NATALIE MADRIGAL Self - patient is the insured Medical (General) History Medical History History ICD Code elevated LFTs hypertension Denies VA,DM,CVA,Lung disease,renal dise ase Surgical History Surgery Date(Month/Year) hernia repair x 3 ,2015
[2025-02-17 08:54] LABS: MANUAL DIFF FLAG NO
[2025-02-17 09:18] LABS: Hematocrit 37.9 % (37.0-47.0); Hemoglobin 11.9 g/dl (12.0-16.0); Imm Gran Abs Auto 0.03 X10*3/uL (0.00-0.03); Imm Gran Pct Auto 0.3 % (0.0-0.4); Lymphocytes Absolute Auto 3.5 X10*3/uL (1.2-4.9); Mean Corpuscular HGB Conc 31.4 g/dl (31.0-35.0); Mean Corpuscular Hemoglobin 25.2 pg (27.0-33.0); Mean Corpuscular Volume 80.1 fL (80.0-98.0); NRBC Abs Auto 0.000 X10*3/uL (0.0-0.012); NRBC Pct Auto 0.0 /100WBC (0.0-0.2); Platelet Count 274 X10*3/uL (160-400); Red Blood Count 4.73 X10*6/uL (4.20-5.50); White Blood Count 9.4 X10*3/uL (4.8-10.8)
[2025-02-17 09:39] LABS: Alanine Aminotransferase 20 U/L (0-31); Albumin Level 3.9 g/dL (3.5-5.0); Alkaline Phosphatase 76 U/L (39-117); Anion Gap 11 (12-20); Aspartate Amino Transferase 21 U/L (5-31); Blood Urea Nitrogen 21 mg/dL (9-16); Calcium 9.1 mg/dL (8.4-10.2); Carbon Dioxide 26 mmol/L (22-29); Chloride 107 mmol/L (96-108); Cholesterol 151 mg/dL (<200); Estimated Glomerular Filt Rate 55; HDL Cholesterol 36 mg/dL (>40); Iron 60 mcg/dL (30-160); Percent Iron Saturation 30 % (15-50); Potassium 4.8 mmol/L (3.3-5.1); Sodium 139 mmol/L (135-145); Total Iron Binding Capacity 200 mcg/dL (228-428); Total Protein 7.5 g/dL (6.5-8.0); Triglycerides 96 mg/dL (<150); Unsaturated Iron Binding 140 ug/dL
[2025-02-17 10:00] LABS: Thyroid Stimulating Hormone 1.25 uIU/mL (0.32-4.0)
== END 2025-02-17 08:34 | disposition home or self-care (01) ==
LOC: HO.LAB 08:33
PROVIDERS: PCP Internal Medicine; Visit Provider Internal Medicine
DX: J45.909 Unspecified asthma, uncomplicated (principal); E06.3 Autoimmune thyroiditis; E55.9 Vitamin D deficiency, unspecified; E78.5 Hyperlipidemia, unspecified; D64.9 Anemia, unspecified
CPT/HCPCS: 36415; 80053; 80061; 82306; 83540; 84443; 85025

== ENCOUNTER 2025-02-25 13:50 | Outpatient (AMB) | payer OTHER, SELFPAY ==
[2025-02-25 13:54] VITALS: BP 142/60; BMI 31.3
--- NOTE | 2025-02-25 13:54 | MHC.PC.OV ---
Vital Signs 02/25/25 13:54 02/25/25 14:15 Height 5 ft 2 in Weight 171 lb BMI 31.3 BP 142/60 H 138/60 Blood Pressure Location Lt brachial Lt brachial Position Sitting Sitting Intake Visit Reasons: bp, thyroid Intake Note: Patient here for a follow up BP, Thyroid Legal Nurse Consultant Required: No Accompanied by: Grand Child Allergies No Known Allergies (No Known Allergies*) Allergy (Verified 02/25/25 13:59) Medication List - Last Reconciled 02/25/25 by Della Gramajo MD albuterol sulfate 90 mcg/actuation 2 puffs inhalation Q6-8H 30 days albuterol sulfate 2.5 mg (3 mL) inhalation TID PRN 30 days atorvastatin 10 mg PO BEDTIME 90 days cholecalciferol (vitamin D3) 25 mcg PO DAILY 90 days adam.stocking,knee,reg,smal 15-20cm diclofenac sodium 50 mg PO TID PRN 30 days hyeryruwtiq-otzyhaccp-ferhvvwp 100-62.5-25 mcg (Trelegy Ellipta) 1 inh inhalation DAILY 30 days furosemide 20 mg PO BID 90 days [incontinence pads As directed] levothyroxine 112 mcg PO DAILY 90 days loratadine (Allergy Relief (loratadine)) 10 mg PO DAILY 90 days losartan 25 mg PO DAILY 90 days meclizine 25 mg PO TID PRN 30 days montelukast 10 mg PO BEDTIME 90 days omeprazole 40 mg PO DAILY 90 days [reclining chair As directed] umeclidinium-vilanterol 62.5-25 mcg/actuation (Anoro Ellipta) 1 inh inhalation DAILY 30 days Tobacco use date assessed: 08/18/24 Fall risk assessment: No Falls in past year Last assessed Fall Risk: 02/25/25 Dental Screening Dental Screen Date: 08/18/24 HPI HPI Comments History of Present Illness Details The patient is an 84-year-old female presenting with a routine follow-up for chronic condition management and medication review. The patient has a history of asthma, for which she uses Trelegy as needed. She also takes loratadine and montelukast for allergic rhinitis, which occasionally affects her left eye, causing irritation and requiring eye drops for relief. The patient is on levothyroxine 112 mcg for hypothyroidism, with recent thyroid function tests showing stable results. She is advised to take this medication daily without fail. The patient experiences gastroesophageal reflux disease (GERD) and uses omeprazole as needed, particularly when experiencing symptoms of heartburn. She is advised not to take omeprazole daily unless symptoms persist, due to potential side effects such as decreased magnesium levels. Laboratory results from January indicate a hemoglobin level of 11.9 g/dL, ruling out anemia, and normal electrolyte levels. Renal function is slightly below normal with a GFR of 55 mL/min/1.73 m?, but this is considered acceptable for her age. The patient has a fasting blood glucose level of 115 mg/dL, indicating prediabetes, which has been a consistent finding over time. She is encouraged to maintain a balanced diet to manage her blood glucose levels. Cholesterol levels are well-controlled with atorvastatin, with a total cholesterol of 151 mg/dL and LDL of 96 mg/dL. Vitamin D levels are slightly low at 26 ng/mL, and supplementation is recommended. [facility] Medical History (Updated 02/25/25 @ 14:13 by Della Gramajo MD) Pulmonary nodule Chronic allergic rhinitis Asthma Asthma Impaired glucose tolerance Moderate asthma Hypovitaminosis D Dyslipidemia Leg edema GERD (gastroesophageal reflux disease) Autoimmune thyroiditis Mild asthma Essential hypertension Surgical History History of inguinal hernia repair, bilateral Family History Father COPD (chronic obstructive pulmonary disease) Mother Tuberculosis Sister Breast cancer Social History Housing: Apartment Alcohol intake: never Patient Tobacco Use Status: Never used Tobacco e-Cigarette/Vaping Use: Never Used Second Hand Smoke Exposure: No service: No Current occupational status: disabled Cognitive needs: Yes Hearing needs: No Vision needs: No Questionnaire PHQ-9 Over the last 2 weeks, how often have you been bothered by any of the following problems? 1. Little interest or pleasure in doing things: not at all 2. Feeling down, depressed, or hopeless: not at all 3. Trouble falling or staying asleep, or sleeping too much: not at all 4. Feeling tired or having little energy: not at all 5. Poor appetite or overeating: not at all 6. Feeling bad about yourself - or that you are a failure or have let yourself or your family down: not at all 7. Trouble concentrating on things, such as reading the newspaper or watching television: not at all 8. Moving or speaking so slowly that other people could have noticed. Or the opposite - being so fidgety or restless that you have been moving around a lot more than usual: not at all 9. Thoughts that you would be better off or of hurting yourself in some way: not at all Total score: 0 Depression Screening Interpretation: Negative Depression Screening Done: Yes 61690 - PHQ-9 Billing: Yes Source: Developed by Drs. Fabian Quintana, eGeta Irizarry, Khoa Odonnell and colleagues, with an educational stephenie from [employer] Thrive Questionnaire Date Thrive assessed: 08/18/24 I am a: Patient What is your living situation today?: I have a steady place to live Within the past 12 months, did the food you bought not last and you didn't have the money to get more?: Never true Within the past 12 months, did you worry whether your food would run out before you got money to buy more?: Never true Do you have trouble paying for medicines?: No Do you have trouble getting transportation to medical appointments?: No Do you have trouble paying your heating and electricity bill?: No Do you have trouble taking care of your child, family member or friend?: No Do you have trouble with day-to-day activities such as bathing, preparing meals, shopping, managing finances, etc.?: Yes Are you currently unemployed and looking for a job?: No Are you interested in more education?: No Please select the resources that you would like help with: None Currently or been in a relationship where the following occur: No concerns reported THRIVE Score: 0 AUDIT C Alcohol Use Questionnaire (AUDIT-C) 1. How often do you have a drink containing alcohol?: Never Total Score: 0 Score Reviewed/Action Taken: No TONY-7 AMB Questionnaire TONY-7 Date TONY - 7 assessed: 08/18/24 Feeling nervous, anxious, or on edge: 0 = Not at all Not being able to stop or control worryin = Several days Worrying too much about different things: 1 = Several days Trouble relaxin = Not at all Being so restless that it is hard to sit still: 0 = Not at all Becoming easily annoyed or irritable: 0 = Not at all Feeling afraid as if something awful might happen: 0 = Not at all Total TONY-7 score (0-4 normal; 5-9 mild; 10-14 moderate; 15-21 severe): 2 Source: Developed by Drs. Fabian Quintana, Geeta Irizarry, Khoa Odonnell and colleagues, with an educational stephenie from [employer] ([employer]). TONY-7 Assessment Billing TONY-7 Assessment Tool: TONY-7 Assessment 37589 Review of Systems Const All systems reviewed & are unremarkable except as noted in HPI and below Card Denies chest pain at rest, Denies chest pain with activity, Denies edema, Denies irregular heart rhythm, Denies claudication, Denies dyspnea, Denies dyspnea on exertion, Denies orthopnea, Denies paroxysmal nocturnal dyspnea and Denies slow heart rate Resp Denies cough, Denies dyspnea and Denies dyspnea on exertion GI Denies abdominal pain, Denies change in bowel habits, Denies excessive flatus, Denies nausea and Denies vomiting Physical exam (Primary Care) Vital Signs: Last Vital Signs BP 142/60 H 02/25/25 13:54 BMI result Body Mass Index 31.3 BMI Assessment/Plan discussion: High BMI High, discussed plan: lifestyle, weight reduction, dietary and physical activity Tobacco/Smoking Status: Tobacco use Status Tobacco use date assessed 08/18/24 02/25/25 13:58 Patient Tobacco Use Status Never used Tobacco 02/25/25 13:58 e-Cigarette/Vaping Use Never Used 02/25/25 13:58 PHQ-9: PHQ-9 Score PHQ-9: Total score 0 02/25/25 13:58 Depression Screening Interpretation: Negative Thrive Assessment: Date of Thrive Assessment Date Thrive assessed 08/18/24 02/25/25 13:58 Currently or been in a relationship where the following occur: No concerns reported Resp Effort & Inspection: normal respiratory effort Auscultation: clear to auscultation bilaterally Cardio Jugular venous distension: no JVD Rate: regular rate Rhythm: regular rhythm Heart sounds: S1 normal heart sound present and S2 normal heart sound present Extrem General: Yes full ROM Coding Level of Care Code Est Pt Level 4 (08346) Complex EM visit Add On G2211 Diagnoses Essential hypertension I10 Dyslipidemia E78.5 Impaired glucose tolerance R73.02 Autoimmune thyroiditis E06.3 Hypovitaminosis D E55.9 Allergic conjunctivitis H10.10 Gastroesophageal reflux disease, unspecified whether esophagitis present K21.9 Esophagitis presence: esophagitis presence not specified Moderate persistent asthma without complication J45.40 Asthma persistence: persistent Asthma complication type: uncomplicated Additional Codes PHQ-9 - 76284 - PHQ-9 Billing: Yes ([id number]) TONY-7 Assessment Billing - TONY-7 Assessment Tool: TONY-7 Assessment 47254 ([id number]) Time Spent (min) 23 Assessment & Plan Assessment & Plan (1) Essential hypertension: Code(s): I10 - Essential (primary) hypertension Category: Medical (2) Dyslipidemia: Code(s): E78.5 - Hyperlipidemia, unspecified Category: Medical (3) Impaired glucose tolerance: Code(s): R73.02 - Impaired glucose tolerance (oral) Category: Medical (4) Autoimmune thyroiditis: Code(s): E06.3 - Autoimmune thyroiditis Category: Medical (5) Hypovitaminosis D: Code(s): E55.9 - Vitamin D deficiency, unspecified Category: Medical (6) Allergic conjunctivitis: Code(s): H10.10 - Acute atopic conjunctivitis, unspecified eye Category: Medical (7) GERD (gastroesophageal reflux disease): Code(s): K21.9 - Gastro-esophageal reflux disease without esophagitis Category: Medical Qualifiers: Esophagitis presence: esophagitis presence not specified Qualified Code(s): K21.9 - Gastro-esophageal reflux disease without esophagitis (8) Moderate asthma: Code(s): J45.909 - Unspecified asthma, uncomplicated Category: Medical Qualifiers: Asthma persistence: persistent Asthma complication type: uncomplicated Qualified Code(s): J45.40 - Moderate persistent asthma, uncomplicated Plan The patient is advised to continue using Trelegy for asthma management as needed and to maintain her current regimen of loratadine and montelukast for allergic rhinitis. Levothyroxine should be taken daily to manage hypothyroidism, with no changes to the current dosage as thyroid function is stable. For gastroesophageal reflux disease, the patient should use omeprazole only when experiencing symptoms, to avoid potential side effects such as decreased magnesium levels. The patient is encouraged to maintain a balanced diet to manage prediabetes and to continue atorvastatin for cholesterol control. Vitamin D supplementation is recommended to address the deficiency, and follow-up laboratory tests are scheduled for September to reassess her condition. Patient was informed and verbally consented to the use of an ambient scribe for clinic note documentation during this visit. Orders: Orders Lipid Panel 7 Months E78.5 - Hyperlipidemia, unspecified Thyroid Stimulating Hormone 7 Months E06.3 - Autoimmune thyroiditis Vitamin D 25-OH Total 7 Months E55.9 - Vitamin D deficiency, unspecified Complete Blood Count Auto Diff 7 Months D64.9 - Anemia, unspecified Comprehensive Jackson. Panel Fast 7 Months R73.02 - Impaired glucose tolerance (oral) Referrals Ophthalmology Referral H10.10 - Acute atopic conjunctivitis, unspecified eye
[2025-02-25 14:15] VITALS: BP 138/60
--- OUTSIDE RECORDS SUMMARY | 2025-02-25 14:19 | XMS_ITS | Patient Health Record ---
Author Organization [facility] Address [address] [place] [address] Care Team Providers Care Paper Mill Superintendent Name Role Phone Della Pennington Primary Care [...] Problem Status W/U Status Risk Notes Problem [id number] Acute gastric ulcer without hemorrhage or perforation (K25.3) Active confirmed Problem [id number] Elevated liver function tests (R79.89) Active confirmed Problem [id number] Fatty liver (K76.0) Active confirmed Plan Of Treatment Future Test Test Name Order Date UPPER GI ENDOSCOPY 03/21/2017 Insurance Providers Payer Name Payer Address Payer Phone Subscriber Number Group Number Insured Name Patient Relationship to Insured Coverage Start Date Coverage End Date [facility] [address] [place] [phone] [id number] NATALIE MADRIGAL Self - patient is the insured Medical (General) History Medical History History ICD Code elevated LFTs hypertension Denies AL,DM,CVA,Lung disease,renal dise ase Surgical History Surgery Date(Month/Year) hernia repair x 3 ,2015
== END 2025-02-25 14:13 | disposition home or self-care (01) ==
LOC: HO.HMCH 13:50
PROVIDERS: PCP Internal Medicine; Visit Provider Internal Medicine
DX: I10 Essential (primary) hypertension (principal); E78.5 Hyperlipidemia, unspecified; R73.02 Impaired glucose tolerance (oral); E06.3 Autoimmune thyroiditis; E55.9 Vitamin D deficiency, unspecified; H10.10 Acute atopic conjunctivitis, unspecified eye; K21.9 Gastro-esophageal reflux disease without esophagitis; J45.40 Moderate persistent asthma, uncomplicated

== ENCOUNTER → 2025-02-25 13:50 | Outpatient (BNVA) | payer OTHER, SELFPAY | PROVIDERS: PCP Internal Medicine; Visit Provider Internal Medicine | DX: K21.9 Gastro-esophageal reflux disease without esophagitis (principal); J45.909 Unspecified asthma, uncomplicated; D64.9 Anemia, unspecified; R73.03 Prediabetes; E55.9 Vitamin D deficiency, unspecified; I10 Essential (primary) hypertension; E78.5 Hyperlipidemia, unspecified; R73.02 Impaired glucose tolerance (oral); E06.3 Autoimmune thyroiditis; H10.10 Acute atopic conjunctivitis, unspecified eye; J45.40 Moderate persistent asthma, uncomplicated; Z79.899 Other long term (current) drug therapy | CPT/HCPCS: 96127; 99212 ==